=== PATIENT | male | born 1945 | race Caucasian/White ===

== ENCOUNTER 2021-03-16 12:00 | Day surgery (SDC) | payer BC ==
[2021-03-16] VITALS (9 sets, daily range): BP systolic 106–135; BP diastolic 72–88
[~2021-03-16] VITALS: Ht 185.4 cm; Wt 84.1 kg
[2021-03-16] MEDS ORDERED: normal saline 1000ml 1,000 ML IV SCH (12:50)
[2021-03-16] MEDS ORDERED: MIDAZolam 1mg/ml 10ml vial IV ONE (12:50)
[2021-03-16] MEDS ORDERED: fentaNYL/PF 50MCG/1 ML 2ML syringe IV ONE (12:50)
[2021-03-16] MEDS ORDERED: SPIR25TA5 PO (12:55)
[2021-03-16] MEDS ORDERED: CHOL50004 PO (12:55)
[2021-03-16] MEDS ORDERED: LISI-790 PO (12:55)
[2021-03-16] MEDS ORDERED: TORS20TA3 PO (12:55)
[2021-03-16] MEDS ORDERED: AMIO200T61 PO (12:55)
[2021-03-16] MEDS ORDERED: METO-384 PO (12:55)
[2021-03-16] MEDS ORDERED: POTA20TA19 PO (12:55)
[2021-03-16] MEDS ORDERED: APIX5TAB3 PO (12:55)
[2021-03-16] MEDS ORDERED: MULT-1085 PO (12:55)
[2021-03-16 13:22] LABS: ALBUMIN 3.2 G/DL (3.4-5.0); ANION GAP 11 (8-16); BLOOD UREA NITROGEN 24 MG/DL (7-18); BUN/CREATININE RATIO 19.8 (5.4-32.0); CALCIUM 8.7 MG/DL (8.5-10.1); CHLORIDE 105 MMOL/L (99-107); CREATININE 1.21 MG/DL (0.60-1.10); GLUCOSE 138 MG/DL (70-104); POTASSIUM 4.8 MMOL/L (3.5-5.1); SODIUM 142 MMOL/L (135-145); TOTAL CARBON DIOXIDE 25.8 MMOL/L (24-32); eGFR 59 ML/MIN
== END 2021-03-16 15:25 | disposition home or self-care (01) ==
LOC: SSTAY O 12:00
PROVIDERS: ATTEND Internal Medicine Interventional Cardiology
DX: I48.91 Unspecified atrial fibrillation (principal); E11.9 Type 2 diabetes mellitus without complications; Z79.01 Long term (current) use of anticoagulants; Z79.899 Other long term (current) drug therapy
CPT/HCPCS: 36415; 80048; 85610; 92960; 93005; 94760; 94799; J2250; J3010; J7030